=== PATIENT | female | born 1985 | race Caucasian/White ===

== ENCOUNTER 2017-04-07 18:11 | Emergency (ER) | payer BC ==
[2017-04-07 18:51] LABS: BASO % 0.2 % (0.1-1.2); EOS % 20.4 % (0.7-5.8); GRAN # 4.6 10_X3_uL (1.6-6.1); GRAN % 45.9 % (34.0-71.1); HEMATOCRIT 38.9 % (34-45); HEMOGLOBIN 12.9 g/dL (11.2-15.7); LYMPH % 29.6 % (19.3-51.7); MEAN CORPUSCULAR HEMOGLOBIN 28.7 pg (27.0-33.0); MEAN CORPUSCULAR HGB CONC 33.2 g/dL (32.0-36.0); MEAN CORPUSCULAR VOLUME 86.4 fL (79-95); MONO # 0.4 10_X3_uL (0.2-0.9); MONO % 3.9 % (4.7-12.5); PLATELET COUNT 301 x10_3/uL (182-369)
[2017-04-07 19:04] LABS: ALBUMIN 4.1 gm/dL (3.4-5.0); ALKALINE PHOSPHATASE 52 U/L (50-136); ALT/SGPT 15 U/L (3.5-33.9); AST/SGOT 16 U/L (7.04-26.96); BILIRUBIN,TOTAL 0.49 mg/dL (0.0-1.0); BLOOD UREA NITROGEN 14 mg/dL (7-18); CALCIUM 9.4 mg/dL (8.7-10.7); CARBON DIOXIDE 24 mmol/L (21-32); CREATININE 0.7 mg/dL (0.6-1.3); GLUCOSE,RANDOM 101 mg/dL (70-99); LIPASE 45 U/L (6.75-60.75); POTASSIUM 4.1 mmol/L (3.5-5.1); SODIUM 142 mmol/L (136-145)
== END 2017-04-07 19:30 | disposition home or self-care (01) ==
LOC: ER 18:11
PROVIDERS: Internal Medicine
DX: R10.13 Epigastric pain (principal); R11.0 Nausea
CPT/HCPCS: 36415; 80053; 83690; 85025; 99283